=== PATIENT | female | born 1960 | race Two or more races ===

== ENCOUNTER 2023-05-08 13:24 | Day surgery (SDC) | payer OTHER, MEDICAID ==
[2023-05-03 12:01] LABS: Basophils # (auto) 0 10 ^3/uL (0-0.2); Basophils % (auto) 0.7 % (0.0-2.0); Eosinophils # (auto) 0.1 10 ^3/uL (0-0.8); Eosinophils % (auto) 2.2 % (0.0-7.0); Hematocrit 42.2 % (36.0-46.0); Hemoglobin 14.1 g/dL (12.2-16.2); Lymphocytes # (auto) 1.5 10 ^3/uL (0.4-5.4); Lymphocytes % (auto) 30.6 % (10.0-50.0); Mean Corpuscular Hemoglobin 28.6 pg (28.0-32.0); Mean Corpuscular Hgb Conc. 33.3 g/dL (32.0-36.0); Mean Corpuscular Volume 85.8 fL (80.0-100.0); Monocytes # (auto) 0.6 10 ^3/uL (0-1.3); Monocytes % (auto) 11.6 % (0.0-12.0); Neutrophils # (auto) 2.7 10 ^3/uL (1.6-8.6); Neutrophils % (auto) 54.9 % (37.0-80.0); Nucleated Red Blood Cells % 0.1 %; Red Blood Cells 4.93 10^6/uL (4.0-5.20); Red Cell Distribution Width 13.7 % (11.8-14.3); White Blood Cell 4.9 10^3/uL (4.4-10.8)
[2023-05-03 12:18] LABS: INR 0.98 (0.9-1.15); Partial Thromboplastin Time 25.6 SEC (24.5-34.5); Prothrombin Time 10.3 sec (9.3-11.8)
[2023-05-03 12:41] LABS: Alanine Aminotransferase 40 U/L (7-40); Albumin 4.4 g/dL (3.2-4.8); Alkaline Phosphatase 47 U/L (46-116); Anion Gap 7 (5-15); Aspartate Aminotransferase 26 U/L (13-40); BUN/Creatinine Ratio 14.5 (10.0-20.0); Bilirubin, Total 0.6 mg/dL (0.2-1.0); Blood Urea Nitrogen 11 mg/dL (9-23); Calcium 9.7 mg/dL (8.5-10.1); Carbon Dioxide 26 mmol/L (20-30); Chloride 104 mmol/L (98-107); Glucose 176 mg/dL (74-106); Potassium 4.4 mmol/L (3.5-5.1); Sodium 137 mmol/L (136-145); Total Protein 7.7 g/dL (5.7-8.2)
[~2023-05-08] VITALS: Ht 165.1 cm; Wt 68.0 kg
[~2023-05-08 13:24] MED LIST: CYAN-17 PO; DAPA1TAB4 PO; METF-372 PO
[2023-05-08] MEDS ORDERED: SODIUM CHLORIDE LOCK 10 ML ONE (13:47)
[2023-05-08 14:23] VITALS: O2SAT 100
[2023-05-08] MEDS: MIDAZOLAM HCL 5 MG/ML-1ML VIAL ONE ×2 (14:27→14:34)
[2023-05-08] MEDS: fentaNYL CITRATE 100 MCG/2 ML VL ONE ×2 (14:27→14:34)
[2023-05-08] MEDS: diphenhdrAMINE HCL 50 MG/1 ML VL ONE ×2 (14:27→14:33)
[2023-05-08 14:53] VITALS: O2SAT 99
[2023-05-08 14:54] VITALS: TEMP 97.2
[2023-05-08 15:30] VITALS: BP 136/62; PULSE 62; RESP 15; O2SAT 99
== END 2023-05-08 15:59 | disposition home or self-care (01) ==
LOC: GI 13:24
PROVIDERS: ATTEND Internal Medicine Gastroenterology
DX: Z12.11 Encounter for screening for malignant neoplasm of colon (principal); D12.0 Benign neoplasm of cecum; D12.2 Benign neoplasm of ascending colon; K64.8 Other hemorrhoids; E11.9 Type 2 diabetes mellitus without complications; Z79.84 Long term (current) use of oral hypoglycemic drugs; Z85.3 Personal history of malignant neoplasm of breast; Z98.890 Other specified postprocedural states
CPT/HCPCS: 36415; 45380; 45385; 80053; 82962; 85025; 85610; 85730; 88305; J1200; J2250; J3010; J7030; 99152; 99153